=== PATIENT | male | born 1945 | race Caucasian/White ===

== ENCOUNTER 2017-01-30 14:40 | Emergency (ER) | payer OTHER, BC ==
[~2017-01-30] VITALS: Ht 190.5 cm; Wt 113.0 kg
[2017-01-30] MEDS ORDERED: VIBRAMYCIN100 MG PO (18:16)
[2017-01-30 19:27] VITALS: BP 163/81
== END 2017-01-30 19:28 | disposition home or self-care (01) ==
LOC: EME 14:40
DX: S61.511A Laceration without foreign body of right wrist, initial encounter (principal); W26.0XXA Contact with knife, initial encounter; Z23 Encounter for immunization; E11.9 Type 2 diabetes mellitus without complications; I10 Essential (primary) hypertension
CPT/HCPCS: 73110; 99281; 99284

== ENCOUNTER 2017-09-08 17:48 | Emergency (ER) | payer OTHER, BC ==
[~2017-09-08] VITALS: Ht 182.9 cm; Wt 116.5 kg
[~2017-09-08 17:48] MED LIST: VIBRAMYCIN100 MG PO
[2017-09-08 18:43] LABS: HEMATOCRIT 40.3 % (38.0-50.0); HEMOGLOBIN 13.7 G/DL (12.5-16.6); MCH 29.8 PG (29.0-34.0); MCV 87.6 FL (86-99); PLATELET COUNT 312 K/uL (156-360); RBC DIS.WIDTH-CV 13.1 % (11.8-14.6); RBC DIS.WIDTH-SD 42.1 % (39-53); WHITE BLOOD COUNT 8.2 K/uL (4.1-10.2)
[2017-09-08 18:51] LABS: CHLORIDE 108 mEq/L (99-109); POTASSIUM 4.2 mEq/L (3.7-5.4); SODIUM 140 mEq/L (136-147)
[2017-09-08 18:53] LABS: GLUCOSE 108 mg/dL (70-99)
[2017-09-08 18:57] LABS: CREATININE 1.2 mg/dL (0.6-1.3); GFR ESTIMATE (CALCULATED) > 59 mL/min/ (58.99-99999)
[2017-09-08 18:58] LABS: UREA NITROGEN (BUN) 21 mg/dL (9-23)
[2017-09-08 20:30] VITALS: BP 161/72
== END 2017-09-08 20:35 | disposition home or self-care (01) ==
LOC: EME 17:48
PROVIDERS: Physician Assistant
DX: K62.89 Other specified diseases of anus and rectum (principal); E11.9 Type 2 diabetes mellitus without complications; E78.5 Hyperlipidemia, unspecified; I10 Essential (primary) hypertension
CPT/HCPCS: 74177; 80048; 85027; 99281; 99284; J7030